=== PATIENT | female | born 1950 | race Caucasian/White ===

== ENCOUNTER → 2017-08-22 | Outpatient (CLI) | payer MEDICARE ==
[~2017-08-22] MED LIST: ALEN70TA43 PO; ASPI81TA15 PO; CAR6.25 PO; CHOL100052 PO; CHOL500050 PO; DEN60I SUBQ; DIG125 PO; DIGO125T73 PO; ENOX40DI9 SQ; ENOX60DI8 SQ; FLU45SYR17 IM; KET10 PO; LISI2.5T60 PO; MEGE400O20 PO; MIRT-27 PO; MIRT7.5T2 PO; PANT40TA65 PO; PEG4000S14 PO; PHEN100 PO; PHEN100C82 PO; PNEU0.5D3 IM; WAR5 PO; WAR75 PO; WARF-1 PO; WARF1TAB15 PO; WARF1TAB56 PO; WARF3TAB36 PO; WARF6TAB PO; WARF6TAB36 PO
--- NOTE | 2017-08-24 09:06 | RADIOLOGY IMAGING REPORT ---
FACILITY: PATIENT NAME: GRIS VELAZQUEZ : [id number] MR: [id number] V: [id number] EXAM DATE: [id number] ORDERING PHYSICIAN: LUDWIN MCKEON TECHNOLOGIST: Fahad Forte PROCEDURE:US LEFT BREAST COMPARISON:Prior Left Breast Ultrasound of 01/03/17 INDICATIONS: 6 month follow-up FINDINGS: There are several mildly prominent ducts identified in the left retroareolar breast. The previously noted small hypoechoic region in the lateral left retroareolar breast is no longer seen. It may have represented a fibroglandular tissue. DIAGNOSTIC CATEGORY 3--PROBABLY BENIGN FINDING. RECOMMENDATIONS: SIX MONTH FOLLOW-UP SCREENING MAMMOGRAM: BILATERAL BREASTS. IMPRESSION: BIRADS 3: Probably benign finding No significant abnormality identified in the left breast however of note the patient will be due for her annual mammogram in November of 2017. Dictated by: Ruby Ring M.D. on 08/22/2017 at 16:48 Transcribed by: GRAZYNA on 08/23/2017 at 11:18 Approved by: Ruby Ring M.D. on 08/24/2017 at 9:05 [facility]
--- NOTE | 2017-08-24 09:06 | RADIOLOGY IMAGING REPORT ---
FACILITY: [facility] [place] PATIENT NAME: GRIS VELAZQUEZ : [id number] MR: [id number] V: [id number] EXAM DATE: [id number] ORDERING PHYSICIAN: LUDWIN MCKEON TECHNOLOGIST: Dagmar Ferguson PROCEDURE:LEFT DIGITAL DIAGNOSTIC MAMMOGRAM WITH CAD ASSISTED INTERPRETATION & 3D TOMOSYNTHESIS COMPARISON:Prior mammograms 01/03/17, 12/14/16 INDICATIONS:6 MO F/U FINDINGS: Moderately heterogeneous fibroglandular tissue is again seen throughout the left breast. The parenchymal pattern has remained stable allowing for difference in mammographic technique & patient positioning. There is no demonstration of malignant appearing mass, malignant appearing calcifications or other secondary sign of malignancy in the left breast. Today's left breast ultrasound demonstrated several mildly prominent ducts. The hypoechoic structure previously identified in the lateral retroareolar left breast was not identified on today's examination DIAGNOSTIC CATEGORY 3--PROBABLY BENIGN FINDING. RECOMMENDATIONS: SIX MONTH FOLLOW-UP SCREENING MAMMOGRAM: BILATERAL BREASTS. IMPRESSION: BIRADS 3: Probably benign finding No significant abnormality of the left breast is seen. The patient will be due for her annual mammogram in November of 2017. Dictated by: Ruby Ring M.D. on 08/22/2017 at 16:47 Transcribed by: GRAZYNA on 08/23/2017 at 11:15 Approved by: Ruby Ring M.D. on 08/24/2017 at 9:05 [facility]
== END ==
LOC: MAMO 00:23
PROVIDERS: ATTEND Nurse Practitioner Family
DX: N60.42 Mammary duct ectasia of left breast (principal)
CPT/HCPCS: 77065

== ENCOUNTER → 2017-11-19 | Outpatient (CLI) | payer MEDICARE ==
[~2017-11-19] MED LIST changes: +IBAN150T6 PO; +WARF6TAB13 PO; -WARF6TAB36 PO
== END ==
LOC: LAB 11:08
PROVIDERS: ATTEND Internal Medicine Cardiovascular Disease
DX: I50.22 Chronic systolic (congestive) heart failure (principal); I10 Essential (primary) hypertension
CPT/HCPCS: 36415; 82310; 82374; 82435; 82565; 82947; 84132; 84295; 84520

== ENCOUNTER → 2018-04-17 | Outpatient (CLI) | payer MEDICARE ==
[2018-04-17 10:46] LABS: PLATELET COUNT, AUTOMATED 149 K/uL (150-450)
[2018-04-17 12:12] LABS: LDL CHOLESTEROL 87 mg/dl
== END ==
LOC: LAB 10:26
PROVIDERS: ATTEND Nurse Practitioner Family
DX: M81.0 Age-related osteoporosis without current pathological fracture (principal); E55.9 Vitamin D deficiency, unspecified; E78.5 Hyperlipidemia, unspecified; G40.909 Epilepsy, unspecified, not intractable, without status epilepticus; I10 Essential (primary) hypertension; Z79.899 Other long term (current) drug therapy
CPT/HCPCS: 36415; 80162; 80185; 82040; 82247; 82306; 82310; 82374; 82435; 82465; 82565; 82947; 83036; 83718; 84075; 84132; 84155; 84295; 84443; 84450; 84460; 84478; 84520; 85025